=== PATIENT | male | born 1990 | race Caucasian/White ===

== ENCOUNTER 2025-01-28 07:46 | Day surgery (SDC) | payer BC ==
[2025-01-23 11:09] VITALS: BMI 35.7
[2025-01-28] MEDS ORDERED: AFRIN NASAL MIST 15 ML BOT ONE (08:44)
[2025-01-28] MEDS ORDERED: Oxymetazoline HCl 0.05% (15 ML) ONE (08:45)
[2025-01-28] MEDS ORDERED: Lidocaine 1% w/Epinephrine 1:200K 30 ML VIAL ONE (09:24)
[2025-01-28] MEDS ORDERED: PROPOFOL 20 ML ONE (09:26)
[2025-01-28] MEDS ORDERED: Ondansetron PF 4 MG/2 ML Vial ONE (09:28)
[2025-01-28] MEDS ORDERED: Lidocaine 1% PF 5 ML VIAL ONE (09:28)
[2025-01-28] MEDS ORDERED: Hydrocodone-Acetamin 15 ML UDCUP ONE (11:24)
== END 2025-01-28 12:00 | disposition home or self-care (01) ==
LOC: CSHSDC 07:46
PROVIDERS: ATTEND Otolaryngology Plastic Surgery within the Head & Neck
PROC: 099R8ZZ Drainage of Left Maxillary Sinus, Via Natural or Artificial Opening Endoscopic (ICD-10-PCS; principal; 2025-01-28)
PROC: 09TU8ZZ Resection of Right Ethmoid Sinus, Via Natural or Artificial Opening Endoscopic (ICD-10-PCS; principal; 2025-01-28)
PROC: 09TL8ZZ Resection of Nasal Turbinate, Via Natural or Artificial Opening Endoscopic (ICD-10-PCS; principal; 2025-01-28)
PROC: 099Q8ZZ Drainage of Right Maxillary Sinus, Via Natural or Artificial Opening Endoscopic (ICD-10-PCS; principal; 2025-01-28)
PROC: 099S8ZZ Drainage of Right Frontal Sinus, Via Natural or Artificial Opening Endoscopic (ICD-10-PCS; principal; 2025-01-28)
PROC: 099X8ZZ Drainage of Left Sphenoid Sinus, Via Natural or Artificial Opening Endoscopic (ICD-10-PCS; principal; 2025-01-28)
PROC: 099W8ZZ Drainage of Right Sphenoid Sinus, Via Natural or Artificial Opening Endoscopic (ICD-10-PCS; principal; 2025-01-28)
PROC: 099T8ZZ Drainage of Left Frontal Sinus, Via Natural or Artificial Opening Endoscopic (ICD-10-PCS; principal; 2025-01-28)
PROC: 09TV8ZZ Resection of Left Ethmoid Sinus, Via Natural or Artificial Opening Endoscopic (ICD-10-PCS; principal; 2025-01-28)
DX: J32.4 Chronic pansinusitis (principal); J34.3 Hypertrophy of nasal turbinates; J34.2 Deviated nasal septum; H69.83 Other specified disorders of Eustachian tube, bilateral; K21.9 Gastro-esophageal reflux disease without esophagitis; K09.0 Developmental odontogenic cysts; E66.9 Obesity, unspecified; Z68.35 Body mass index [BMI] 35.0-35.9, adult; Z96.22 Myringotomy tube(s) status
CPT/HCPCS: J1100; J2250; J2405; J2704; J3010